=== PATIENT | male | born 1930 | race Caucasian/White ===

== ENCOUNTER 2016-11-12 09:01 | Emergency (ER) | payer MEDICARE, OTHER ==
[~2016-11-12] VITALS: Ht 177.8 cm; Wt 83.8 kg
[~2016-11-12 09:01] MED LIST: CARB1TAB53 PO; DUTA0.5C9 PO; TAMS0.4C20 PO
[2016-11-12 09:07] VITALS: Ht 177.8 cm; Wt 83.8 kg
--- OUTSIDE RECORDS SUMMARY | 2016-11-12 09:09 | XMS REPORT | Continuity of Care Document ---
Author Author Mary WALKER, Jose Sow Ambulatory Address [address] [place] [address] Phone Care Team Providers Care Stitch Wheeler Name Role Phone Bubba Gomez PP Unavailable Payers Payer name Insurance type Covered constitution party ID Authorization(s) Unknown Problems Condition Effective Dates (start - stop) Clinical Status BPH - *Controlled Hypertension, Unspecified - *Controlled Paralysis agitans - *Controlled Edema extremities - *Chronic Shoulder pain - *Acute Wrist pain, left - *Acute Scalp laceration - *Acute Brain concussion - *Acute Parkinson's Disease - *Chronic BPH - *Controlled Parkinson's Disease - Well Controlled Parkinson's Disease - Mild BPH - *Controlled Urinary frequency - *Controlled Parkinson's Disease - Mild PARALYSIS AGITANS - BPH NOS W/O UR OBS/LUTS - GENERAL OSTEOARTHROSIS - MUSCLE WEAKNESS-GENERAL - ABN INVOLUN MOVEMENT NEC - ABNORMALITY OF GAIT - Fx navicular, wrist-closed - *Acute Parkinson's Disease - *Chronic Closed fracture of navicular (scaphoid) bone of wr - *Acute Hand edema - *Resolved Parkinson disease - Well Controlled Family History Family Member Diagnosis Age At Onset Status Unknown Social History Social History Element Description Quantity Unknown Allergies, Adverse Reactions, Alerts Substance Reaction Severity Status Unknown Medications Medication Instructions Dosage Effective Dates (start - stop) Status Sinemet 25 mg-100 mg tablet Take 1 tablet by mouth 3 times a day. 2012 - Active Avodart 0.5 mg capsule Take 1 capsule by mouth every day. - Active Maxzide-25mg 37.5 mg-25 mg tablet take 1 tablet by oral route every day 0 - Active tamsulosin ER 0.4 mg capsule,extended release 24 hr Take 1 capsule by mouth at bedtime. - Active Immunizations Vaccine Date Status Comments Unknown Results Test Name Date and Time Measure Units Reference Range Abnormal Flag Comments Unknown Vital Signs Date / Time: Height Weight Pulse Rate Blood Pressure Temperature /14:01:00 70.00 in 192.00 lbs 86 /min 130/76 mm[Hg] Procedures Procedure Date Unknown Encounters Encounter Location Date Patient Visit [facility] Urology Patient Visit [facility] Patient Visit [facility] Patient Visit [facility] Patient Visit [facility] Patient Visit [facility] U[facility] Patient Visit [facility] Patient Visit [facility] Patient Visit [facility] Patient Visit [facility] Patient Visit [facility] Patient Visit [facility] Advance Directives Directive Effective Date Unknown
--- OUTSIDE RECORDS SUMMARY | 2016-11-12 09:16 | XMS REPORT | Continuity of Care Document ---
Author Author Bubba Gomez MD Organization Ambulatory Address [address] [place] [address] Phone Care Team Providers Care Line Up Worker Name Role Phone Bubba Gomez PP Unavailable Payers Payer name Insurance type Covered alliance party ID Authorization(s) Unknown Problems Condition Effective Dates (start - stop) Clinical Status Fx navicular, wrist-closed - *Acute Edema extremities - *Chronic Shoulder pain - *Acute Wrist pain, left - *Acute Scalp laceration - *Acute Brain concussion - *Acute Parkinson's Disease - *Chronic BPH - *Controlled Parkinson's Disease - Well Controlled Parkinson's Disease - Mild BPH - *Controlled Hypertension, Unspecified - *Controlled Paralysis agitans - *Controlled BPH - *Controlled Urinary frequency - *Controlled Parkinson's Disease - Mild PARALYSIS AGITANS - BPH NOS W/O UR OBS/LUTS - GENERAL OSTEOARTHROSIS - MUSCLE WEAKNESS-GENERAL - ABN INVOLUN MOVEMENT NEC - ABNORMALITY OF GAIT - Parkinson's Disease - *Chronic Closed fracture of [...] Height Weight Pulse Rate Blood Pressure Temperature /13:09:00 70.00 in 199.00 lbs 134/72 mm[Hg] 97.2 F Procedures Procedure Date Unknown Encounters Encounter Location Date Patient Visit [facility] Patient Visit [facility] Patient Visit [facility] Urology Patient Visit [facility] Patient Visit [facility] Patient Visit [facility] Patient [facility] Patient Visit [facility] Patient Visit [facility] Patient Visit [facility] Patient Visit [facility] Patient Visit [facility] Patient Visit [facility] Patient Visit [facility] Advance Directives Directive Effective Date Unknown
--- OUTSIDE RECORDS SUMMARY | 2016-11-12 09:16 | XMS REPORT | Referral Summary ---
Author Organization Unknown Address Unknown Phone Unavailable Care Team Providers Care Can Capper Name Role Phone Vanessa Gomez Primary Care Physician [phone] Encounter VC Date(s): 10/12/14 - 10/12/14 [facility], [place], Family [address] [place], [place] [address] Discharge Diagnosis: Degenerative joint disease Discharge Diagnosis: Parkinsons disease Discharge Disposition: Home or Self Care Attending Physician: Bubba Gomez MD Admitting Physician: Bubba Gomez MD Vital Signs Most recent to 1 oldest [Reference Range]: Blood Pressure 120/68 mmHg [90-140/60-90 mmHg] (10/12/14 3:34 PM) Problem List Condition Effective Dates Status Health Status Informant Weakness(Confirmed) Active Edema(Confirmed) Active History of Active BPH(Confirmed) Degenerative joint Active disease(Confirmed) Parkinsons 07/15/10 Active disease(Confirmed) Prostatism(Confirmed Active ) Shuffling Active gait(Confirmed) Tremor(Confirmed) Active Allergies, Adverse Reactions, Alerts No Known Medication Allergies Medications Avodart 0.5 mg oral capsule See Instructions, TAKE ONE CAPSULE BY MOUTH EVERY DAY, # 90 caps, 1 Refill(s), eRx: [facility] #[id number], TAKE ONE CAPSULE BY MOUTH EVERY DAY Special Instructions: TAKE ONE CAPSULE BY MOUTH EVERY DAY Start Date: 06/16/14 Status: Ordered Maxzide-25 oral tablet See Instructions, TAKE ONE TABLET BY MOUTH EVERY DAY, # 30 tabs, 1 Refill(s), eRx: [facility] #[id number], TAKE ONE TABLET BY MOUTH EVERY DAY Special Instructions: TAKE ONE TABLET BY MOUTH EVERY DAY Start Date: 10/05/14 Status: Ordered Sinemet 25 mg-100 mg oral tablet See Instructions, TAKE ONE TABLET BY MOUTH THREE TIMES A DAY, # 100 tabs, 11 Refill(s), eRx: [facility] #[id number], TAKE ONE TABLET BY MOUTH THREE TIMES A DAY Special Instructions: TAKE ONE TABLET BY MOUTH THREE TIMES A DAY Start Date: 05/03/14 Status: Ordered Sinemet 25 mg-250 mg oral tablet 1 tabs, Oral, TID, # 270 tabs, 0 Refill(s), Pharmacy: [facility] #[id number] Start Date: 10/12/14 Status: Ordered tamsulosin 0.4 mg oral capsule See Instructions, TAKE ONE CAPSULE BY MOUTH EVERY NIGHT AT BEDTIME, # 30 caps, 5 Refill(s), eRx: [facility] #[id number], TAKE ONE CAPSULE BY MOUTH EVERY NIGHT AT BEDTIME Special Instructions: TAKE ONE CAPSULE BY MOUTH EVERY NIGHT AT BEDTIME Start Date: 06/29/14 Status: Ordered Tylenol Arthritis Caplet 650 mg, Oral, q8hr, 0 Refill(s) Start Date: 08/10/14 Status: Ordered Results No data available for this section Immunizations No data available for this section Procedures Procedure Date Related Diagnosis Body Site Prostate specific antigen 11/07/11 Prostate specific antigen 04/20/11 Adenoidectomy Hernia Knee replacement-left Knee replacement-rt Tonsillectomy Social History Social History Type Response Smoking Status Never smoker Assessment and Plan Extracted from: Title: Ambulatory Patient Education Author: Bubba Gomez MD Date: Family Medicine Parkinson Disease Parkinson disease is a disorder of the central nervous system, which includes the brain and spinal cord. A person with this disease slowly loses the ability to completely control body movements. Within the brain, there is a group of nerve cells (basal ganglia ) that help control movement. The basal ganglia are damaged and do not work properly in a person with Parkinson disease. In addition , the basal ganglia produce and use a brain chemical called dopamine. The dopamine chemical sends messages to other parts of the body to control and coordinate body movements. Dopamine levels are low in a person with Parkinson disease. If the dopamine levels are low, then the body does not receive the correct messages it needs to move normally. CAUSES The exact reason why the basal ganglia get damaged is not known. Some medical researchers have thought that infection, genes, environment, and certain medicines may contribute to the cause. SYMPTOMS An early symptom of Parkinson disease is often an uncontrolled shaking ( tremor ) of the hands. The tremor will often disappear when the affected hand is consciously used. As the disease progresses, walking, talking, getting out of a chair, and new movements become more difficult. Muscles get stiff and movements become slower. Balance and coordination become harder. Depression, trouble swallowing, urinary problems, constipation, and sleep problems can occur. Later in the disease, memory and thought processes may deteriorate. DIAGNOSIS There are no specific tests to diagnose Parkinson disease. You may be referred to a neurologist for evaluation. Your caregiver will ask about your medical history, symptoms, and perform a physical exam. Blood tests and imaging tests of your brain may be performed to rule out other diseases. The imaging tests may include an MRI or a CT scan. TREATMENT The goal of treatment is to relieve symptoms. Medicines may be prescribed once the symptoms become troublesome. Medicine will not stop the progression of the disease, but medicine can make movement and balance better and help control tremors. Speech and occupational therapy may also be prescribed. Sometimes, surgical treatment of the brain can be done in young people. HOME CARE INSTRUCTIONS Get regular exercise and rest periods during the day to help prevent exhaustion and depression. If getting dressed becomes difficult, replace buttons and zippers with Velcro and elastic on your clothing. Take all medicine as directed by your caregiver. Install grab bars or railings in your home to prevent falls. Go to speech or occupational therapy as directed. Keep all follow-up visits as directed by your caregiver. SEEK MEDICAL CARE IF: Your symptoms are not controlled with your medicine. You fall. You have trouble swallowing or choke on your food. MAKE SURE YOU: Understand these instructions. Will watch your condition. Will get help right away if you are not doing well or get worse. Document Released: 08/30/2001 Document Revised: 12/28/2013 Document Reviewed: [facility] Patient Information 2014 SYLOB. Osteoarthritis Osteoarthritis is the most common form of arthritis. It is redness, soreness, and swelling (inflammation ) affecting the cartilage. Cartilage acts as a cushion, covering the ends of bones where they meet to form a joint. CAUSES Over time, the cartilage begins to wear away. This causes bone to rub on bone. This produces pain and stiffness in the affected joints. Factors that contribute to this problem are: Excessive body weight. Age. Overuse of joints. SYMPTOMS People with osteoarthritis usually experience joint pain, swelling, or stiffness. Over time, the joint may lose its normal shape. Small deposits of bone (osteophytes ) may grow on the edges of the joint. Bits of bone or cartilage can break off and float inside the joint space. This may cause more pain and damage. Osteoarthritis can lead to depression, anxiety, feelings of helplessness, and limitations on daily activities. The most commonly affected joints are in the: Ends of the fingers. Thumbs. Neck. Lower back. Knees. Hips. DIAGNOSIS Diagnosis is mostly based on your symptoms and exam. Tests may be helpful, including: X-rays of the affected joint. A computerized magnetic scan (MRI). Blood tests to rule out other types of arthritis. Joint fluid tests. This involves using a needle to draw fluid from the joint and examining the fluid under a microscope. TREATMENT Goals of treatment are to control pain, improve joint function, maintain a normal body weight, and maintain a healthy lifestyle. Treatment approaches may include: A prescribed exercise program with rest and joint relief. Weight control with nutritional education. Pain relief techniques such as: Properly applied heat and cold. Electric pulses delivered to nerve endings under the skin (transcutaneous electrical nerve stimulation, TENS ). Massage. Certain supplements. Ask your caregiver before using any supplements, especially in combination with prescribed drugs. Medicines to control pain, such as: Acetaminophen. Nonsteroidal anti-inflammatory drugs (NSAIDs), such as naproxen. Narcotic or central-acting agents, such as tramadol. This drug carries a risk of addiction and is generally prescribed for short-term use. Corticosteroids. These can be given orally or as injection. This is a short-term treatment, not recommended for routine use. Surgery to reposition the bones and relieve pain (osteotomy ) or to remove loose pieces of bone and cartilage. Joint replacement may be needed in advanced states of osteoarthritis. HOME CARE INSTRUCTIONS Your caregiver can recommend specific types of exercise. These may include: Strengthening exercises. These are done to strengthen the muscles that support joints affected by arthritis. They can be performed with weights or with exercise bands to add resistance. Aerobic activities. These are exercises, such as brisk walking or low- impact aerobics, that get your heart pumping. They can help keep your lungs and circulatory system in shape. Qtzka-yk-xhebht activities. These keep your joints limber. Balance and agility exercises. These help you maintain daily living skills. Learning about your condition and being actively involved in your care will help improve the course of your osteoarthritis. SEEK MEDICAL CARE IF: You feel hot or your skin turns red. You develop a rash in addition to your joint pain. You have an oral temperature above 102 F (38.9 C). FOR MORE INFORMATION National Clear of Arthritis and Musculoskeletal and Skin Diseases: www.niams.nih.gov National Clear on Aging: www.blayne.nih.gov [employer]: www.rheumatology.org Document Released: 09/02/2006 Document Revised: 11/24/2012 Document Reviewed: [employer] Patient Information 2014 SYLOB. No follow up information was provided. Extracted from: Title: Office Visit Note Author: Bubba Gomez MD Date: 10/12/14 Assessment/Plan Degenerative joint disease Continue with the current medications. Ordered: Office Visit Level 4 Est 81410 Parkinsons disease Increase the Parkinsons medication to 25/250mg tid. Recheck in 2 weeks. Ordered: Office Visit Level 4 Est 04436 Orders: carbidopa-levodopa, 1 tabs, Oral, TID, # 270 tabs, 0 Refill(s), Pharmacy: [facility] #[id number]
--- OUTSIDE RECORDS SUMMARY | 2016-11-12 09:16 | XMS REPORT | Continuity of Care Document ---
Author Author [facility] Organization [facility] Address Unknown Phone Unavailable Allergies Active Description Code Type Severity Reaction Onset Reported/Identified Relationship to Patient Clinical Status Yes No Known Medication Allergies NKMA N/A N/A 06/08/2014 Medications Problems Procedures Results Encounters ACCT No. Visit Date/Time Discharge Status Pt. Type Provider Facility Loc./Unit Complaint [id number] 12/08/2013 11:22:00 12/08/2013 23 :59:59 CLS Outpatient [id number] 12/01/2013 14:00:00 12/01/2013 23 :59:59 CLS Outpatient [id number] 11/25/2013 13:08:00 11/25/2013 23 :59:59 CLS Outpatient [id number] 10/29/2013 10:21:00 10/29/2013 23 :59:59 CLS Outpatient [id number] 10/22/2013 10:14:00 10/22/2013 23 :59:59 CLS Outpatient
--- OUTSIDE RECORDS SUMMARY | 2016-11-12 09:17 | XMS REPORT | Referral Summary ---
Author Author [facility] [place], Family Medicine Organization [facility] Address Unknown Phone Unavailable Care Team Providers Care Clerical Stock Inspector Name Role Phone Vanessa Gomez Primary Care Physician [phone] Encounter VC Date(s): 02/08/16 - 02/08/16 [facility] [place], [address] [place] [id number] Discharge Diagnosis: Cough Discharge Disposition: 01-Home or Self Care Attending Physician: Danielle Hernandez APRN Admitting Physician: Danielle Hernandez APRN Vital Signs Most recent to 1 oldest [Reference Range]: Temperature Oral 36.4 degC [35.8-37.3 degC] (02/08/16 8:54 AM) Peripheral Pulse 68 bpm Rate [60-100 bpm] (02/08/16 8:54 AM) Blood Pressure 108/62 mmHg [90-140/60-90 mmHg] (02/08/16 8:54 AM) Mean Arterial 77 mmHg Pressure, Cuff (02/08/16 8:54 AM) SpO2 98 % (02/08/16 8:54 AM) Problem List Condition Effective Dates Status Health Status Informant Weakness(Confirmed) Active History of Active BPH(Confirmed) Edema(Confirmed) Active Degenerative joint Active disease(Confirmed) Parkinsons 07/15/10 Active disease(Confirmed) Prostatism(Confirmed Active ) Shuffling Active gait(Confirmed) Tremor(Confirmed) Active Allergies, Adverse Reactions, Alerts No Known Medication Allergies Medications Avodart 0.5 mg oral capsule See Instructions, TAKE ONE CAPSULE BY MOUTH EVERY DAY, # 90 caps, 3 Refill(s), eRx: [facility] #[id number], TAKE ONE CAPSULE BY MOUTH EVERY DAY Start Date: 12/14/15 Status: Ordered Sinemet 25 mg-250 mg oral tablet See Instructions, TAKE ONE TABLET BY MOUTH THREE TIMES A DAY, # 270 tabs, eRx: [facility] #[id number], TAKE ONE TABLET BY MOUTH THREE TIMES A DAY Start Date: 12/06/14 Status: Ordered tamsulosin 0.4 mg oral capsule See Instructions, TAKE ONE CAPSULE BY MOUTH EVERY NIGHT AT BEDTIME, # 30 caps, 11 Refill(s), eRx: [facility] #[id number], TAKE ONE CAPSULE BY MOUTH EVERY NIGHT AT BEDTIME Start Date: 12/27/15 Status: Ordered triamterene-hydrochlorothiazide 37.5 mg-25 mg oral tablet See Instructions, TAKE ONE TABLET BY MOUTH EVERY DAY NEEDED FOR SWELLING, # 90 tabs, 3 Refill(s), Pharmacy: [facility] #[id number] Start Date: 07/25/15 Status: Ordered Tylenol Arthritis Caplet 650 mg, [...] Smoking Status Never smoker Assessment and Plan No data available for this section
--- OUTSIDE RECORDS SUMMARY | 2016-11-12 09:17 | XMS REPORT | Referral Summary ---
Author Author [facility] Organization [facility] Address Unknown Phone Unavailable Care Team Providers Care Eyewear Consultant Name Role Phone Vanessa Gomez Primary Care Physician [phone] Encounter VC Date(s): 12/06/15 - 12/06/15 [facility] [place], Urology [address] [place] [address] [place] [id number] Discharge Disposition: 01-Home or Self Care Attending Physician: Jose Hernandez JR, MD Admitting Physician: Jose Hernandez JR, MD Vital Signs Most recent to 1 oldest [Reference Range]: Peripheral Pulse 50 bpm Rate [60-100 bpm] *LOW* (12/06/15 1:40 PM) Blood Pressure 130/76 mmHg [90-140/60-90 mmHg] (12/06/15 1:40 PM) Problem List Condition Effective Dates Status Health Status Informant Weakness(Confirmed) Active History of Active BPH(Confirmed) Edema(Confirmed) Active Degenerative joint Active disease(Confirmed) Parkinsons 07/15/10 Active disease(Confirmed) Prostatism(Confirmed Active ) Shuffling Active gait(Confirmed) Tremor(Confirmed) Active Allergies, Adverse Reactions, Alerts No Known Medication Allergies Medications Avodart 0.5 mg oral capsule See Instructions, TAKE ONE CAPSULE BY MOUTH EVERY DAY, # 90 caps, 1 Refill(s), eRx: [facility] #[id number], TAKE ONE CAPSULE BY MOUTH EVERY DAY Start Date: 06/15/15 Status: Ordered Sinemet 25 mg-250 mg oral tablet See Instructions, TAKE ONE TABLET BY MOUTH THREE TIMES A DAY, # 270 tabs, eRx: [facility] #[id number], TAKE ONE TABLET BY MOUTH THREE TIMES A DAY Start Date: 12/06/14 Status: Ordered tamsulosin 0.4 mg oral capsule See Instructions, TAKE ONE CAPSULE BY MOUTH EVERY NIGHT AT BEDTIME, # 30 caps, eRx: [facility] #[id number], TAKE ONE CAPSULE BY MOUTH EVERY NIGHT AT BEDTIME Start Date: 12/01/15 Status: Ordered triamterene-hydrochlorothiazide 37.5 mg-25 mg oral tablet See Instructions, TAKE ONE TABLET BY MOUTH EVERY DAY NEEDED FOR SWELLING, # 90 tabs, 3 Refill(s), Pharmacy: [facility] #[id number] Start Date: 07/25/15 Status: Ordered Tylenol Arthritis Caplet 650 mg, Oral, q8hr, 0 Refill(s) Start Date: 08/10/14 Status: Ordered Results Chemistry Most recent to 1 oldest [Reference Range]: PSA (wihout Reflex 1.0 ng/mL 1 Free) [0.0-6.5 (12/06/15 1:33 PM) ng/mL] 1Result Comment: AUA PSA Best Practice Guidelines: Age-Adjusted PSA Values by Ethnic Group Age Range Asians - Caucasians Americans 40-49 0-2.0 0-2.0 0-2.5 50-59 0-3.0 0-4.0 0-3.5 60-69 0-4.0 0-4.5 0-4.5 70-79 0-5.0 0-5.5 0-6.5 Immunizations No data available for this section Procedures Procedure Date Related Diagnosis Body Site Prostate specific antigen 11/07/11 Prostate specific antigen 04/20/11 Adenoidectomy Hernia Knee replacement-left Knee replacement-rt Tonsillectomy Social History Social History Type Response Smoking Status Never smoker Assessment and Plan No data available for this section
--- OUTSIDE RECORDS SUMMARY | 2016-11-12 09:17 | XMS REPORT | Continuity of Care Document ---
Author Author Kaylin Fontanez Ambulatory Address Unknown Phone Unavailable Care Team Providers Care Psychologist Engineering Name Role Phone Gomez Bubba FARAZ Unavailable Payers Payer name Insurance type Covered democrat ID Authorization(s) Unknown Problems Condition Effective Dates (start - stop) Clinical Status Edema extremities - *Chronic Shoulder pain - *Acute Wrist pain, left - *Acute Scalp laceration - *Acute Brain concussion - *Acute Parkinson's Disease - *Chronic BPH - *Controlled Parkinson's Disease - Well Controlled Parkinson's Disease - Mild BPH - *Controlled Hypertension, Unspecified - *Controlled Paralysis agitans - *Controlled BPH - *Controlled Urinary frequency - *Controlled PARALYSIS AGITANS - BPH NOS W/O UR [...] Dosage Effective Dates (start - stop) Status Maxzide-25mg 37.5 mg-25 mg tablet take 1 tablet by oral route every day 0 - Active Flint 5 mg-325 mg tablet take 1 tablet by oral route every 6 hours as needed for pain 0 - No Longer Active Sinemet 25 mg-100 mg tablet Take 1 tablet by mouth 3 times a day. 2012 - Active Avodart 0.5 mg capsule Take 1 capsule by mouth every day. - Active tamsulosin ER 0.4 mg capsule,extended release 24 hr Take 1 capsule by mouth at bedtime. - Active Immunizations Vaccine Date Status Comments Unknown Results Test Name Date and Time Measure Units Reference Range Abnormal Flag Comments Panel Description: CBC WBC 11:44:00 6.0 K/uL 4.8-10.8 RBC 11:44:00 5.02 M/uL 4.60-6.20 HGB 11:44:00 14.8 g/dl 14.0-18.0 HCT 11:44:00 44.3 % 42.0-52.0 MCV 11:44:00 88.2 fL 82.0-99.0 MCH 11:44:00 29.5 pg 27.0-32.0 MCHC 11:44:00 33.4 g/dL 32.0-36.0 RDW 11:44:00 13.1 % 11.5-14.5 MPV 11:44:00 10.0 fL 8.8-14.8 Platelet Count 11:44:00 283 K/uL 150-400 Immature Granulocytes 11:44:00 0.2 % 0.0-1.0 Absolute Neutrophils 11:44:00 3.95 THOUS 1.90-7.00 Absolute Lymphocytes 11:44:00 1.42 THOUS 0.80-3.30 Absolute Monocytes 11:44:00 0.51 THOUS 0.30-1.00 Absolute Eosinophils 11:44:00 0.09 THOUS 0.00-0.50 Absolute Basophils 11:44:00 0.06 THOUS 0.00-0.20 Neutrophils 11:44:00 65 % 51-75 Lymphocytes 11:44:00 24 % 20-46 Monocytes 11:44:00 8 % 4-11 Eosinophils 11:44:00 2 % 0-4 Basophils 11:44:00 1 % 0-2 Testing performed [address] [facility] [address] [facility] [address] [employer] Johann Gilmore MD Panel Description: Chemistry Profile Glucose 11:44:00 106 mg/dL 70-99 H BUN 11:44:00 17 mg/dL 8-26 Creatinine 11:44:00 1.07 mg/dL 0.72-1.25 Calcium 11:44:00 9.6 mg/dL 8.9-10.5 Sodium 11:44:00 140 mEq/L 135-144 Potassium 11:44:00 4.4 mEq/L 3.5-5.2 Chloride 11:44:00 106 mEq/L 99-111 CO2 11:44:00 25 mEq/L 23-31 Albumin 11:44:00 4.3 g/dL 3.4-4.8 Bilirubin Total 11:44:00 0.8 mg/dL 0.2-1.2 Alkaline Phosphatase 11:44:00 93 U/L 40-150 Protein 11:44:00 6.9 g/dL 6.2-8.1 ALT (SGPT) 11:44:00 3 U/L 0-55 AST (SGOT) 11:44:00 13 U/L 5-34 Anion Gap 11:44:00 9 3-20 Globulin 11:44:00 2.6 g/dL 1.8-4.0 Testing performed at [facility] [address] [place] [address] [employer] Johann Gilmore MD Panel Description: Lipid Profile-[facility] Cholesterol 11:44:00 175 mg/dL 0-199 Triglycerides 11:44:00 82 mg/dL 0-149 HDL Cholesterol 11:44:00 68 mg/dL 40-84 LDL Cholesterol 11:44:00 91 mg/dL 0-130 VLDL Cholesterol 11:44:00 16 mg/dL 0-28 Cardiac Risk 11:44:00 2.6 0.0-5.7 Testing performed at [facility] [address] [place] [address] [employer] Johann Gilmore MD Panel Description: Non-HDL Cholesterol-[facility] Non-HDL Cholesterol 11:44:00 107 mg/dL 0-159 Testing performed at [facility] [address] [place] [address] [employer] Johann Gilmore MD Panel Description: T4-[facility] Thyroxine (T4) 11:44:00 8.0 ug/dL 4.8-11.7 Testing performed [address] [facility] [address] [place] [address] [employer] Johann Gilmore MD Panel Description: TSH-[facility] TSH 11:44:00 1.08 uIU/mL 0.35-4.94 Testing performed at [facility] [address] [place] [address] [employer] Johann Gilmore MD Panel Description: EGFR-[facility] eGFR 11:44:00 >60 mL/min >60 Multiply eGFR results by 1.21 for race.Testing performed at [facility] [address] [place] [address] [employer] Johann Gilmore MD Panel Description: Brain Natriuretic Peptide B-Type Natriuretic Peptide 11:44:00 36 pg/mL 0-99 Testing performed at [facility] [address] [place] [address] [employer] Johann Gilmore MD Vital Signs Date / Time: Height Weight Pulse Rate Blood Pressure Temperature /10:15:00 70.00 in 205.00 lbs 160/80 mm[Hg] 98.4 F Procedures Procedure Date Unknown Encounters Encounter Location Date Patient Visit [facility] New FM Patient Visit [facility] Neuro Patient Visit [facility] New Urology Patient Visit [facility] New Urology Patient Visit [facility] New Urology Patient Visit [facility] New Urology Patient Visit [facility] Neuro Patient Visit [facility] New Urology Patient Visit [facility] New Urology Patient Visit [facility] Patient Visit [facility] New Patient Visit [facility] New Patient Visit [facility] Neuro Advance Directives Directive Effective Date Unknown
--- OUTSIDE RECORDS SUMMARY | 2016-11-12 09:17 | XMS REPORT | Referral Summary ---
Author Author Via [facility] [place], Family Medicine Organization Via EarleneCARLO Santillan [facility] Address Unknown Phone Unavailable Care Team Providers Care Clay Dry Press Mixer Operator Name Role Phone Vanessa Gomez Primary Care Physician [phone] Encounter VC Date(s): 07/25/15 - 07/25/15 [facility] Kimball [place], [address] [place] [id number] Discharge Disposition: 01-Home or Self Care Attending Physician: Bubba Gomez MD Admitting Physician: Bubba Gomez MD Vital Signs Most recent to 1 oldest [Reference Range]: Blood Pressure 112/64 mmHg [90-140/60-90 mmHg] (07/25/15 1:15 PM) Problem List Condition Effective Dates Status Health Status Informant Weakness(Confirmed) Active History of Active BPH(Confirmed) Edema(Confirmed) Active Degenerative joint Active disease(Confirmed) Parkinsons 07/15/10 Active disease(Confirmed) Prostatism(Confirmed Active ) Shuffling Active gait(Confirmed) Tremor(Confirmed) Active Allergies, Adverse Reactions, Alerts No Known Medication Allergies Medications Avodart 0.5 mg oral capsule See Instructions, TAKE ONE CAPSULE BY MOUTH EVERY DAY, # 90 caps, 1 Refill(s), eRx: [facility] #[id number], TAKE ONE CAPSULE BY MOUTH EVERY DAY Start Date: 06/15/15 Status: Ordered Sinemet 25 mg-250 mg oral tablet See Instructions, TAKE ONE TABLET BY MOUTH THREE TIMES A DAY, # 270 tabs, eRx: [facility] #[id number], TAKE ONE TABLET BY MOUTH THREE TIMES A DAY Start Date: 12/06/14 Status: Ordered tamsulosin 0.4 mg oral capsule See Instructions, TAKE ONE CAPSULE BY MOUTH EVERY NIGHT AT BEDTIME, # 30 caps, 10 Refill(s), eRx: [facility] #[id number], TAKE ONE CAPSULE BY MOUTH EVERY NIGHT AT BEDTIME Start Date: 12/29/14 Status: Ordered triamterene-hydrochlorothiazide 37.5 mg-25 mg oral tablet See Instructions, TAKE ONE TABLET BY MOUTH EVERY DAY NEEDED FOR SWELLING, # 90 tabs, 3 Refill(s), Pharmacy: [facility] #[id number] Start Date: 07/25/15 Status: Ordered Tylenol Arthritis [...] Patient Education Author: Bubba Gomez MD Date: 07/25/15 Allergy Edema Edema is an abnormal buildup of fluids in your bodytissues. Edema is somewhat dependent on gravity to pull the fluid to the lowest place in your body. That makes the condition more common in the legs and thighs (lower extremities). Painless swelling of the feet and ankles is common and becomes more likely as you get older. It is also common in looser tissues, like around your eyes. When the affected area is squeezed, the fluid may move out of that spot and leave a dent for a few moments. This dent is called pitting. CAUSES There are many possible causes of edema. Eating too much salt and being on your feet or sitting for a long time can cause edema in your legs and ankles. Hot weather may make edema worse. Common medical causes of edema include: Heart failure. Liver disease. Kidney disease. Weak blood vessels in your legs. Cancer. An injury. . Some medications. Obesity. SYMPTOMS Edema is usually painless.Your skin may look swollen or shiny. DIAGNOSIS Your health care provider may be able to diagnose edema by asking about your medical history and doing a physical exam. You may need to have tests such as X- rays, an electrocardiogram, or blood tests to check for medical conditions that may cause edema. TREATMENT Edema treatment depends on the cause. If you have heart, liver, or kidney disease, you need the treatment appropriate for these conditions. General treatment may include: Elevation of the affected body part above the level of your heart. Compression of the affected body part. Pressure from elastic bandages or support stockings squeezes the tissues and forces fluid back into the blood vessels. This keeps fluid from entering the tissues. Restriction of fluid and salt intake. Use of a water pill (diuretic). These medications are appropriate only for some types of edema. They pull fluid out of your body and make you urinate more often. This gets rid of fluid and reduces swelling, but diuretics can have side effects. Only use diuretics as directed by your health care provider. HOME CARE INSTRUCTIONS Keep the affected body part above the level of your heart when you are lying down. Do not sit still or stand for prolonged periods. Do not put anything directly under your knees when lying down. Do not wear constricting clothing or garters on your upper legs. Exercise your legs to work the fluid back into your blood vessels. This may help the swelling go down. Wear elastic bandages or support stockings to reduce ankle swelling as directed by your health care provider. Eat a low-salt diet to reduce fluid if your health care provider recommends it. Only take medicines as directed by your health care provider. SEEK MEDICAL CARE IF: Your edema is not responding to treatment. You have heart, liver, or kidney disease and notice symptoms of edema. You have edema in your legs that does not improve after elevating them. You have sudden and unexplained weight gain. SEEK IMMEDIATE MEDICAL CARE IF: You develop shortness of breath or chest pain. You cannot breathe when you lie down. You develop pain, redness, or warmth in the swollen areas. You have heart, liver, or kidney disease and suddenly get edema. You have a fever and your symptoms suddenly get worse. MAKE SURE YOU: Understand these instructions. Will watch your condition. Will get help right away if you are not doing well or get worse. Document Released: 09/02/2006 Document Revised: 01/17/2015 Document Reviewed: ExitCare Patient Information 2015 [employer]. This information is not intended to replace advice given to you by your health care provider. Make sure you discuss any questions you have with your health care provider. Family Medicine Parkinson Disease Parkinson disease is a disorder of the brain and spinal cord (central nervous system). The person will slowly lose the ability to control his or her body movements. This happens due to: Damaged nerve cells. Low levels of a certain brain chemical. HOME CARE Exercise often. Make time to rest during the day. Take all medicine as told by your doctor. Replace buttons and zippers with elastic and Velcro if getting dressed is difficult. Put grab bars or rails in your home. This helps you to not fall. Go to speech therapy or therapy to help you with daily activities ( occupational therapy). Do this as told by your doctor. Keep all doctor visits as told. GET HELP IF: Your medicine does not help your symptoms. You fall. You have trouble swallowing or choke on your food. MAKE SURE YOU: Understand these instructions. Will watch your condition. Will get help right away if you are not doing well or get worse. Document Released: 11/24/2012 Document Revised: 12/28/2013 Document Reviewed: ExitCare Patient Information 2015 [employer]. This information is not intended to replace advice given to you by your health care provider. Make sure you discuss any questions you have with your health care provider. No follow up information was provided. Extracted from: Title: Office Visit Note Author: Bubba Gomez MD Date: 07/25/15 Assessment/Plan Edema Will have the patient try taking the HCTZ as needed for edema. Ordered: Office Visit Level 3 Est 66499 Parkinsons disease Continue with the current medications. Ordered: Office Visit Level 3 Est 12256 Prostatism Ordered: Office Visit Level 3 Est 57589 Orders: triamterene-hydrochlorothiazide, See Instructions, TAKE ONE TABLET BY MOUTH EVERY DAY NEEDED FOR SWELLING, # 90 tabs, 3 Refill(s), Pharmacy: [facility] #[id number]
--- OUTSIDE RECORDS SUMMARY | 2016-11-12 09:17 | XMS REPORT | Continuity of Care Document ---
Author Author Bubba Gomez MD Organization Ambulatory Address [address] [place] [address] Phone Care Team Providers Care Government Teacher Name Role Phone Bubba Gomez PP Unavailable Payers Payer name Insurance type Covered constitution party ID Authorization(s) Unknown Problems Condition Effective Dates (start - stop) Clinical Status Parkinson's Disease - *Chronic Closed fracture of navicular (scaphoid) bone of wr - *Acute Hand edema - *Resolved Edema extremities - *Chronic Shoulder pain - [...] GAIT - Fx navicular, wrist-closed - *Acute Parkinson disease - Well Controlled Family History Family Member Diagnosis Age At Onset Status Unknown Social History Social History Element Description Quantity Unknown Allergies, Adverse Reactions, Alerts Substance Reaction Severity Status Unknown Medications Medication Instructions Dosage Effective Dates (start - stop) Status Mobic 7.5 mg tablet take 1 tablet (7.5MG) by oral route 2 times every day 7.5 MG - No Longer Active Sinemet 25 mg-100 [...] Height Weight Pulse Rate Blood Pressure Temperature /10:23:00 70.00 in 196.00 lbs 140/80 mm[Hg] 97.2 F Procedures Procedure Date Unknown Encounters Encounter Location Date Patient Visit [facility] Patient Visit [facility] Neuro Patient Visit [facility] Urology Patient Visit [facility] Patient Visit [facility] Urology Patient Visit [facility]rology Patient Visit [facility] Urology Patient Visit [facility] Neuro Patient Visit [facility] New Urology Patient Visit [facility] Urology Patient Visit [facility] Neuro Patient Visit [facility] Patient Visit [facility] Patient Visit [facility] Advance Directives Directive Effective Date Unknown
--- OUTSIDE RECORDS SUMMARY | 2016-11-12 09:17 | XMS REPORT | Referral Summary ---
Author Organization Unknown Address Unknown Phone Unavailable Care Team Providers Care Granite Sandblaster Apprentice Name Role Phone Vanessa Gomez Primary Care Physician [phone] Encounter VC Date(s): 12/07/14 - 12/07/14 [facility]ball, [facility], Urology [address] [place] [address] [place] [address] Discharge Diagnosis: BPH with obstruction/lower urinary tract symptoms Discharge Disposition: Home or Self Care Attending Physician: Jose Hernandez JR, MD Admitting Physician: Jose Hernandez JR, MD Referring Physician: Bubba Gomez MD Vital Signs Most recent to 1 oldest [Reference Range]: Peripheral Pulse 76 bpm Rate [60-100 bpm] (12/07/14 2:23 PM) Blood Pressure 126/68 mmHg [90-140/60-90 mmHg] (12/07/14 2:23 PM) Most recent to 1 oldest [Reference Range]: SpO2 97 % (12/07/14 2:23 PM) Problem List Condition Effective Dates Status Health Status Informant Weakness(Confirmed) Active Edema(Confirmed) Active History of Active BPH(Confirmed) Degenerative joint Active disease(Confirmed) Parkinsons 07/15/10 Active disease(Confirmed) Prostatism(Confirmed Active ) Shuffling Active gait(Confirmed) Tremor(Confirmed) Active Allergies, Adverse Reactions, Alerts No Known Medication Allergies Medications Avodart 0.5 mg oral capsule See Instructions, TAKE ONE CAPSULE BY MOUTH EVERY DAY, # 90 caps, 1 Refill(s), eRx: [email or web address] #[id number], TAKE ONE CAPSULE BY MOUTH EVERY DAY Special Instructions: TAKE ONE CAPSULE BY MOUTH EVERY DAY Start Date: 06/16/14 Status: Ordered Maxzide-25 oral tablet See Instructions, TAKE ONE TABLET BY MOUTH EVERY DAY, # 30 tabs, eRx: [email or web address] #[id number], TAKE ONE TABLET BY MOUTH EVERY DAY Special Instructions: TAKE ONE TABLET BY MOUTH EVERY DAY Start Date: 12/07/14 Status: Ordered Sinemet 25 mg-250 mg oral tablet See Instructions, TAKE ONE TABLET BY MOUTH THREE TIMES A DAY, # 270 tabs, eRx: [facility] #[id number], TAKE ONE TABLET BY MOUTH THREE TIMES A DAY Special Instructions: TAKE ONE TABLET BY MOUTH THREE TIMES A DAY Start Date: 12/06/14 Status: Ordered tamsulosin 0.4 mg oral capsule See Instructions, TAKE ONE CAPSULE BY MOUTH EVERY NIGHT AT BEDTIME, # 30 caps, 5 Refill(s), eRx: [facility] #[id number], TAKE ONE CAPSULE BY MOUTH EVERY NIGHT [...] Extracted from: Title: Ambulatory Patient Education Author: Jose Hernandez JR, MD Date : 12/07/14 Follow Up With: Where: When: Bubba Gomez [address] [place] [address] Drive; [place] [address] Business (1) Within 3 to 5 days Comments: Follow Up With: Where: When: Jose Hernandez [address] [place] [address] Drive; [place] [address] Business (1) In 1 year 12/08/2015 Comments:
--- OUTSIDE RECORDS SUMMARY | 2016-11-12 09:17 | XMS REPORT | Continuity of Care Document ---
Author Author Olive WALKER, Nelli Gonzalez Organization Ambulatory Address [address] [place] [address] Phone Care Team Providers Care Recordak Operator Name Role Phone Bubba Gomez PP Unavailable Payers Payer name Insurance type Covered democrat ID Authorization(s) Unknown Problems Condition Effective Dates (start - stop) Clinical Status Parkinson's Disease - Mild Edema extremities - *Chronic Shoulder pain - [...] Height Weight Pulse Rate Blood Pressure Temperature /11:23:00 70.00 in 192.00 lbs 84 /min 132/78 mm[Hg] Procedures Procedure Date Unknown Encounters Encounter Location Date Patient Visit [facility] Neuro Patient Visit [facility] Patient Visit [facility] Urology Patient Visit [facility] Patient Visit [facility] Urology Patient Visit [facility] Urology Patient Visit [facility] Urology Patient Visit [facility] Neuro Patient Visit [facility] Urology Patient Visit [facility] New Urology Patient Visit [facility] Patient Visit [facility] Patient Visit [facility] Patient Visit [facility] Neuro Advance Directives Directive Effective Date Unknown
--- NOTE | 2016-11-12 09:29 | ERPDOC ---
Departure Disposition Decision Date: Nov 12, 2016 Disposition Decision Time: 11:01 Disposition: 01 DISCHARGED HOME, SELF-CARE Impression Impression Impression: Primary Impression: Syncopal episodes Syncope type: unspecified Qualified Codes: R55 - Syncope and collapse Severity: Moderate Condition: Stable Seen By: Physician only Referrals: AUSTYN CHAMPION MD (Family) Patient Instructions: Syncope (ED) Problems/Meds/Labs Reviewed?: Yes Medications reviewed and manag: Yes Additional Instructions: Follow-up later this week for reevaluation Follow up care ordered?: Yes Mental Status: Alert, Oriented HPI - Syncope General Chief Complaint: Syncope Stated Complaint: FAINTED AT HOME. Time Seen by Provider: 09:28 Source: family Exam Limitations: no limitations HPI - Syncope Initial Comments Patient is an 86-year-old male presents emergency room for evaluation of passing out the breakfast table. Patient taking his home medications normally this morning after eating breakfast, states he suddenly slumped over and passed out for several minutes. Patient woke up alert and oriented without complaint no chest pain or dizziness that he can remember. Patient did say he had an episode like this several months ago where he took his "medications too close together". Patient arrives asymptomatic Occurred At: home Onset: Rapid Duration: other (2-3 minutes) Allergies: Coded Allergies: No Known Drug Allergies (Unverified Adverse Reaction, Unknown, 11/12/16) Past History Past Medical History ENMT: other Male: BPH Neurological: other Surgical History General: hernia, tonsils Joint: knee Social History Smoking Status: Never smoker Substance Use Type: does not use Alcohol Intake: none Review of Systems Constitutional Constitutional: weakness, DENIES: appetite decrease, chills, dizziness, fever Eyes Vision: DENIES: double vision, loss of visual chow ENMT Sinuses: DENIES: congestion, rhinorrhea Cardiovascular Cardiac: DENIES: chest pain, dyspnea on exertion Pulmonary Respiratory: DENIES: cough, dyspnea, sputum, tachypnea GI Upper Abdomen: DENIES: nausea, pain, vomiting Lower Abdomen: DENIES: constipation, diarrhea, pain Musculoskeletal General: DENIES: cramps, pain, weakness Integumentary Skin: DENIES: color change, itching, rash Endocrine Endocrine: DENIES: heat/cold intolerance Hematologic/Lymphatic Hematologic/Lymphatic: DENIES: anemia Physical Exam General General Nourishment: well nourished, well developed General Body Habitus: well groomed Vitals and Pain Weight: Kilograms: Height (feet): Height (inches): Triage Pain Scale: RN VS reviewed by Provider: Yes Eyes (brief) Eyes Brief: found: EOMI, PERRL ENMT (brief) ENMT Brief: FOUND: mucosa moist, normal dentition, NOT FOUND: nasal erythema, pharnyx erythema, tonsillar deviation Neck (brief) Neck: NOT FOUND: adenopathy, spasm, tenderness Respiratory (brief) Respiratory: FOUND: clear all chow, equal bilaterally, NOT FOUND: rales, wheezes Cardiovascular (brief) Cardiac: FOUND: regular rate, regular rhythm Capillary Refill: <2 sec Abdomen (brief) Abdominal Brief: FOUND: bowel normo active x4, soft, NOT FOUND: distended, tender Lymphatic (brief) Lymphatic Brief: NOT FOUND: adenopathy Musculoskeletal (brief) Musculoskeletal Brief: NOT FOUND: spasm, tenderness Integumentary (brief) Integumentary Brief: FOUND: dry, pink, warm, NOT FOUND: rash Neurologic Mental Status: FOUND: alert, oriented GCS Adult : GCS Eye Opening: (4)Spontaneous GCS Verbal: (5)Oriented GCS Motor: (6)Obeys Commands Cranial Nerves: FOUND: other (cranial nerves II through XII intact) Motor : Motor Side: bilateral Motor Location: biceps, triceps, wrist, finger extensors, finger flexors, quadriceps, hamstring, foot extension, foot flexion, coremaker pipe strength Motor Degree: 5 Sensation: FOUND: soft touch intact x4 ext Cerebellar: FOUND: [id number] DTR's : DTR Side: bilateral DTR Location: Biceps, Patellar DTR Grade: 2+ Differential Diagnoses Differential Diagnoses Considering: Acute PR/Ischemia, Aortic Dissection, Bradycardia, Brugada Syndrome, Cardiac Dysrhythmia, Cardiac Tamponade, Hyperventilation, Hypertensive Emergency, Hypoglycemia, Long QT Syndrome, Medication Effect, Orthostatic Hypotension, Overdose, TIA, UTI, Vasovagal Reaction Progress Results/Orders Orders Procedure Category Date Status Time EKG EKG 11/12/16 Taken 09:06 Iv Lock (Ed Only) EDM 11/12/16 Transmitted 09:37 Orthostatic Bp/Pulse EDM 11/12/16 Transmitted 09:37 Cbc W/Auto LAB 11/12/16 Complete Diff-Reflex Manual 09:37 Bmp - Basic Metabolic LAB 11/12/16 Complete Panel 09:37 Troponin I W LAB 11/12/16 Complete Hemolysis Index 09:37 Ua, Dip Wreflex LAB 11/12/16 Complete Microsc & Metal Tube Cutter 09:37 Chest 1 View RAD 11/12/16 Resulted 09:37 Normal Saline (Normal PHA 11/12/16 Complete Saline Iv) 09:37 Lab Results Laboratory Tests Test 11/12/16 09:11 11/12/16 09:18 11/12/16 10:09 Glucometer 125mg/dL White Blood Count 6.0T/MM3 Red Blood Count 4.98M/MM3 Hemoglobin 14.9GM/DL Hematocrit 45.3% Mean Corpuscular Volume 91.0UM3 Mean Corpuscular Hemoglobin 29.9UUG Mean Corpuscular Hemoglobin Concent 32.9GM/DL RDW Standard Deviation 41.9FL Platelet Count 244T/MM3 Mean Platelet Volume 9.5UM3 Immature Granulocyte % (Auto) 0.3% Neutrophils (%) (Auto) 64.3% Lymphocytes (%) (Auto) 27.0% Monocytes (%) (Auto) 6.0% Eosinophils (%) (Auto) 1.7% Basophils (%) (Auto) 0.7% Absolute Immature Granulocyte (auto 0.02T/MM3 Absolute Neutrophils (auto) 3.9T/MM3 Absolute Lymphocytes (auto) 1.6T/MM3 Absolute Monocytes (auto) 0.4T/MM3 Absolute Eosinophils (auto) 0.1T/MM3 Absolute Basophils (auto) 0.0T/MM3 Turbidity < 20 Sodium Level 140MEQ/L Potassium Level 3.7MEQ/L Chloride Level 101MEQ/L Carbon Dioxide Level 32MEQ/L Anion Gap 7MEQ/L Blood Urea Nitrogen 25.0MG/DL Creatinine 1.4MG/DL Glomerular Filtration Rate Calc 48 BUN/Creatinine Ratio 18RATIO Glucose Level 147MG/DL Calculated Osmolality 276MOSM/KG Calcium Level 9.0MG/DL Icterus Index < 2 Troponin I < 0.012ng/ml Chemistry Specimen Hemolysis < 15 Urine Collection Type Voided-not cc-midstr Urine Color Yellow Urine Turbidity Clear Urine pH 6.0 Urine Specific [place] 1.015 Urine Protein Negative Urine Glucose (UA) Negative Urine Ketones Negative Urine Blood Negative Urine Nitrite Negative Urine Bilirubin Negative Urine Urobilinogen 0.2EU/DL Urine Leukocyte Esterase Negative Urinalysis Comment Microscopic not ind. Medications Current ED Medications Sodium Chloride (Normal Saline IV) 1,000 ml @ 999 mls/hr Q1H1M ONCE IV Last administered on 11/12/16t 10:04; Start 11/12/16 at 09:37; Stop 11/12/16 at 10:37 ; Status DC EKG EKG : Rate: <60 Rhythm: sinus [place]: normal QRS: normal Intervals: [address]/T: non-specific changes Interpreted by: signing physician Xray Xray : Xray: CXR Portable Interpretation: Normal, Reviewed Written Report WENDY WATERS MD Nov 12, 2016 09:28
[2016-11-12] MEDS ORDERED: NORMAL SALINE 1,000 ML IV ONE (09:37)
[2016-11-12 09:44] LABS: BASOPHILS % (AUTO) 0.7 % (0-2); EOSINOPHILS # (AUTO) 0.1 T/MM3 (0-0.5); EOSINOPHILS % (AUTO) 1.7 % (0-4); HCT - HEMATOCRIT 45.3 % (41-53); HGB - HEMOGLOBIN 14.9 GM/DL (13.5-17.5); IMMATURE GRANULOCYTE # (AUTO) 0.02 T/MM3 (0.00-0.03); IMMATURE GRANULOCYTE % (AUTO) 0.3 % (0.0-0.5); LYMPHOCYTES # (AUTO) 1.6 T/MM3 (1-4.8); MEAN CORPUSCULAR HGB 29.9 UUG (26-34); MEAN CORPUSCULAR HGB CONC(MCHC 32.9 GM/DL (31-37); MEAN PLATELET VOLUME 9.5 UM3 (9.4-12.4); MONOCYTES # (AUTO) 0.4 T/MM3 (0-0.8); NEUTROPHILS #(AUTO)-ABSOLUTE 3.9 T/MM3 (1.8-7.7); NEUTROPHILS % (AUTO) 64.3 % (33-66); RED BLOOD COUNT 4.98 M/MM3 (4.50-5.90)
[2016-11-12 09:49] LABS: ANION GAP 7 MEQ/L (5-15); BUN/CREATININE RATIO 18 RATIO (6-26); CHLORIDE 101 MEQ/L (98-107); CO2 - CARBON DIOXIDE 32 MEQ/L (22-30); CREATININE 1.4 MG/DL (0.8-1.5); GLOMERULAR FILTRATION RATE 48; GLUCOSE 147 MG/DL (75-110); POTASSIUM 3.7 MEQ/L (3.6-5); SODIUM 140 MEQ/L (134-144)
--- OUTSIDE RECORDS SUMMARY | 2016-11-12 09:57 | XMS REPORT | Continuity of Care Document ---
Author Author [facility] Organization [facility] Address Unknown Phone Unavailable Allergies Active Description Code Type Severity Reaction Onset Reported/Identified Relationship to Patient Clinical Status Yes No Known Medication Allergies NKMA N/A N/A 06/08/2014 Medications Problems Procedures Results Encounters ACCT No. Visit Date/Time Discharge Status Pt. Type Provider Facility Loc./Unit Complaint [id number] 12/08/2013 11:22:00 12/08/2013 23 :59:59 CLS Outpatient [id number] 12/01/2013 14:00:00 12/01/2013 23 :59:59 CLS Outpatient [id number] 11/25/2013 13:08:00 11/25/2013 23 :59:59 CLS Outpatient [id number] 10/29/2013 10:21:00 10/29/2013 23 :59:59 CLS Outpatient [id number] 10/22/2013 10:14:00 10/22/2013 23 :59:59 CLS Outpatient
[2016-11-12 10:18] LABS: BLOOD, URINE NEGATIVE (NEGATIVE); COLOR,URINE YELLOW (YELLOW); LEUKOCYTE ESTERASE ,URINE NEGATIVE (NEGATIVE); NITRITE,URINE NEGATIVE (NEGATIVE); UROBILINOGEN,URINE 0.2 EU/DL (NORMAL)
[2016-11-12] MEDS ORDERED: CARB1TAB23 PO (10:33)
[2016-11-12] MEDS ORDERED: CYAN10009 PO (10:33)
[2016-11-12] MEDS ORDERED: TAMS0.4C47 PO (10:33)
[2016-11-12] MEDS ORDERED: TRIA1TAB3 PO (10:33)
--- NOTE | 2016-11-12 10:38 | DI ---
Indication: ITS.REASON: syncopal episode PROCEDURE: CHEST 1 VIEW: Encounter: Initial Comparison: None Findings: The lungs are clear. Heart size normal. No focal opacity to suggest atelectasis or pneumonia. No mediastinal or hilar adenopathy. No pleural effusion. No subdiaphragmatic free air. The trachea is midline. No definite acute appearing displaced rib fracture or pneumothorax. Impression: No acute process. .
[2016-11-12 11:25] VITALS: BP 111/59; PULSE 55; RESP 16; TEMP 98.6; O2SAT 96
--- NOTE | 2016-11-12 11:25 | NUR ---
DEPART VERBAL AND WRITTEN DISCHARGE INSTRUCTIONS GIVEN AND UNDERSTOOD. CONDITION STABLE. RELEASED AMBULATORY WITH .
== END 2016-11-12 11:25 | disposition home or self-care (01) ==
LOC: ED 09:01
DX: R55 Syncope and collapse (principal); R53.1 Weakness
CPT/HCPCS: 71010; 80048; 81003; 82948; 84484; 85025; 93005; 96360; 99284; J7030

== ENCOUNTER → 2016-11-28 | Outpatient (CLI) | payer MEDICARE, OTHER ==
[~2016-11-28] MED LIST changes: +CARB1TAB23 PO; -CARB1TAB53 PO; +CYAN10009 PO; +IOHEXOL 300 MG/ML 50ml INJECTION ONE; +NORMAL SALINE 100 ML ONE; +SALINE FLUSH 10ml SYRINGE ONE; -TAMS0.4C20 PO; +TAMS0.4C47 PO; +TRIA1TAB3 PO
--- NOTE | 2016-11-28 11:16 | DI ---
Indication: ITS.REASON: R55 Syncope and collapse Procedure: CT HEAD W/WO CONTRAST: Encounter: Initial Comparison: None Technique: Axial CT images through the head were performed before and after administration of 50 mL Omnipaque 300 intravenous contrast. Iterative Reconstruction dose reducing technique was utilized. FINDINGS: Ill-defined hypoattenuations within the periventricular and subcortical deep white matter, a nonspecific finding, however most commonly related to chronic small vessel ischemic disease. The normal grissom-white matter junction is otherwise maintained. No intra-axial or extra-axial mass or hemorrhage seen. No mass effect or midline shift. No abnormal postcontrast enhancement. Symmetric prominence of the ventricles and cerebral sulci, most consistent with age-related generalized cerebral volume loss. The ventricles are otherwise normal in shape and configuration without evidence of hydrocephalus. The basilar cisterns are patent. No extracalvarial scalp swelling. No acute calvarial fracture. The visualized paranasal sinuses and mastoid air cells are well aerated. The visualized orbits and globes appear normal. IMPRESSION: 1. No acute intracranial process identified by CT. 2. Age-related generalized cerebral volume loss and chronic small vessel ischemic disease. .
== END ==
LOC: IMA 10:08
PROVIDERS: ATTEND Internal Medicine Cardiovascular Disease
DX: R55 Syncope and collapse (principal); I67.82 Cerebral ischemia
CPT/HCPCS: 70470; J7050; Q9967

== ENCOUNTER 2016-12-26 12:04 | Observation (INO) | payer MEDICARE, OTHER ==
[~2016-12-26] VITALS: Ht 177.8 cm; Wt 80.7 kg
[~2016-12-26 12:04] MED LIST changes: -IOHEXOL 300 MG/ML 50ml INJECTION ONE; -NORMAL SALINE 100 ML ONE; -SALINE FLUSH 10ml SYRINGE ONE
--- OUTSIDE RECORDS SUMMARY | 2016-12-26 12:08 | XMS REPORT | Continuity of Care Document ---
Author Author [facility] Organization [facility] Address Unknown Phone Unavailable Support Name Relationship Address Phone AUSTYN CHAMPION MD Caregiver [address] [place] [address] Unavailable WENDY WATERS MD Caregiver [address] [address] Unavailable GEOVANNA BADILLO Next Of Kin [address] [id number] Insurance Providers Guarantor Anabel Badillo Address [address] [place] [phone] Email DENIED 16 Payer [facility] Policy Number [id number] Subscriber's Name Anabel Badillo Relationship 18 Self Group Number [id number] Effective Date 97 Payer Medicare Policy Number [id number] Subscriber's Name Anabel Badillo Relationship 18 Self Advance Directives Directive Response Recorded Date/Time Advanced Directives Type None 11/12/16 9:53am Chief Complaint and Reason for Visit Chief Complaint Syncope Reason for Visit Syncopal episodes Problems Past Problems Medical Problem Onset Date Syncopal episodes Unknown Medications Current Home Medications Medication Dose Units Route Directions Days Qty Instructions Start Date Carbidopa/Levodopa (Carbidopa-Levodopa 25-250 Tab) 1 Each Tablet 1 Tab Oral Three Times Daily/Empty [place] 11/12/16 Cyanocobalamin (Vitamin B-12) (Vitamin B-12) 1,000 Mcg Tablet 1,000 Mcg Oral Daily 11/12/16 Dutasteride (Avodart) 0.5 Mg Capsule 0.5 Mg Oral Daily 06/06/12 Tamsulosin Hcl 0.4 Mg Cap.er.24h 0.4 Mg Oral Bedtime 11/12/16 Triamterene/Hydrochlorothiazid (Triamterene-Hctz 37.5-25 Mg Tb) 1 Each Tablet 1 Tab Oral Daily 11/12/16 Social History Query Response Start Date Stop Date Smoking Status Unknown if ever smoked Hospital Discharge Instructions No hospital discharge instructions. Plan of Care Discharge Date 11/12/16 11:25am Disposition 01 DISCHARGED HOME, SELF-CARE Condition at Discharge Stable Instructions/Education Provided Syncope (ED) Prescriptions See Medication Section Referrals AUSTYN CHAMPION MD Address: [address] [place] [address] [place], [place] [phone] Additional Instructions/Education Follow-up later this week for reevaluation Care Plan and Goals Physician Care Plan Problem: Syncope Goal: Follow up with primary care provider Instructions: Take medications and follow care plan as discussed/written Functional Status No functional status results. Allergies, Adverse Reactions, Alerts Allergen Type Severity Reaction Status Last Updated No Known Drug Allergies Adverse Reaction Unknown Active 11/12/16 Immunizations Query Response on File Recorded Date/Time Hx Tetanus, Diptheria, Pertussis N/A SKIN INTACT 06/06/12 12:00pm Hx Tetanus, Diptheria, Pertussis N/A SKIN INTACT 06/06/12 12:00pm Vital Signs Acute Vital Signs Vital Response Date/Time Temperature (Fahrenheit) 98.6 deg F (96.8 - 99.1) 11/12/2016 9:07am Temperature (Calculated Celsius) 37.96203 degrees C (36.0 - 37.3) 11/12/2016 9:07am Pulse Rate (adult) 55 bpm (60 - 100) 11/12/2016 11:15am Respiratory Rate 16 breaths/min (10 - 20) 11/12/2016 11:15am O2 Sat by Pulse Oximetry 96 % (90 - 100) 11/12/2016 11:15am Blood Pressure 111/59 mm Hg 11/12/2016 11:15am Height (Feet) 5 feet 11/12/2016 9:07am Height (Inches) 10.00 inches 11/12/2016 9:07am Weight (Kilograms) 83.800 kg 11/12/2016 9:07am Body Mass Index (BMI) 26.0 11/12/2016 9:07am Results Laboratory Results Test Name Result Units Flags Reference Collection Date/Time Result Date/ Time Comments White Blood Count 6.0 T/MM3 4.5-11.0 11/12/2016 9:18am 11/12/2016 9: 44am Red Blood Count 4.98 M/MM3 4.50-5.90 11/12/2016 9:18am 11/12/2016 9: 44am Hemoglobin 14.9 GM/DL 13.5-17.5 11/12/2016 9:18am 11/12/2016 9:44am Hematocrit 45.3 % 41-53 11/12/2016 9:18am 11/12/2016 9:44am Mean Corpuscular Volume 91.0 UM3 80-100 11/12/2016 9:18am 11/12/2016 9: 44am Mean Corpuscular Hemoglobin 29.9 UUG 26-34 11/12/2016 9:18am 2016 9:44am Mean Corpuscular Hemoglobin Concent 32.9 GM/DL 31-37 11/12/2016 9:18am 11/12/2016 9:44am RDW Standard Deviation 41.9 FL 36.9-50.2 11/12/2016 9:18am 11/12/2016 9 :44am Platelet Count 244 T/MM3 130-400 11/12/2016 9:18am 11/12/2016 9:44am Mean Platelet Volume 9.5 UM3 9.4-12.4 11/12/2016 9:18am 11/12/2016 9: 44am Neutrophils (%) (Auto) 64.3 % 33-66 11/12/2016 9:18am 11/12/2016 9: 44am Lymphocytes (%) (Auto) 27.0 % 23-45 11/12/2016 9:18am 11/12/2016 9: 44am Monocytes (%) (Auto) 6.0 % 0-9.0 11/12/2016 9:18am 11/12/2016 9:44am Eosinophils (%) (Auto) 1.7 % 0-4 11/12/2016 9:1811/12/2016 9:44am Basophils (%) (Auto) 0.7 % 0-2 11/12/2016 9:18am 11/12/2016 9:44am Immature Granulocyte % (Auto) 0.3 % 0.0-0.5 11/12/2016 9:18am 2016 9:44am Absolute Neutrophils (auto) 3.9 T/MM3 1.8-7.7 11/12/2016 9:18am 2016 9:44am Absolute Lymphocytes (auto) 1.6 T/MM3 1-4.8 11/12/2016 9:182016 9:44am Absolute Monocytes (auto) 0.4 T/MM3 0-0.8 11/12/2016 9:18am 11/12/2016 9:44am Absolute Eosinophils (auto) 0.1 T/MM3 0-0.5 11/12/2016 9:18am 2016 9:44am Absolute Basophils (auto) 0.0 T/MM3 0-0.2 11/12/2016 9:1811/12/2016 9:44am Absolute Immature Granulocyte (auto 0.02 T/MM3 0.00-0.03 11/12/2016 9: 18am 11/12/2016 9:44am Icterus Index < 2 0-7 11/12/2016 9:18am 11/12/2016 9:49am Chemistry Specimen Hemolysis < 15 0-25 11/12/2016 9:1811/12/2016 9 :49am 0-25: Specimen Exhibited No Hemolysis. Turbidity < 20 0-20 11/12/2016 9:1811/12/2016 9:49am Sodium Level 140 MEQ/L 134-144 11/12/2016 9:1811/12/2016 9:49am Potassium Level 3.7 MEQ/L 3.6-5 11/12/2016 9:1811/12/2016 9:49am Chloride Level 101 MEQ/L 98-107 11/12/2016 9:18am 11/12/2016 9:49am Carbon Dioxide Level 32 MEQ/L H 22-30 11/12/2016 9:1811/12/2016 9: 49am Anion Gap 7 MEQ/L 5-15 11/12/2016 9:1811/12/2016 9:49am Blood Urea Nitrogen 25.0 MG/DL H 9-20 11/12/2016 9:18am 11/12/2016 9: 49am Creatinine 1.4 MG/DL 0.8-1.5 11/12/2016 9:1811/12/2016 9:49am BUN/Creatinine Ratio 18 RATIO 6-26 11/12/2016 9:18am 11/12/2016 9:49am Glomerular Filtration Rate Calc 48 11/12/2016 9:1811/12/2016 9: 49am Glucose Level 147 MG/DL H 75-110 11/12/2016 9:18am 11/12/2016 9:49am Calculated Osmolality 276 MOSM/KG 261-280 11/12/2016 9:18am 11/12/2016 9:49am Calcium Level 9.0 MG/DL 8.4-10.2 11/12/2016 9:18am 11/12/2016 9:49am Troponin I < 0.012 ng/ml 0-0.12 11/12/2016 9:18am 11/12/2016 10:02am Troponin values with a difference of 55% increase from orginal troponin value represent a true biological DELTA value. (%increase Calc=Orginal Troponin value, divided by subsequent Troponin value, multiplied by 100) Urine Collection Type VOIDED-NOT CC-MIDSTR 11/12/2016 10:0911/12 10:18am Urine Color YELLOW YELLOW 11/12/2016 10:0911/12/2016 10:18am Urine Turbidity CLEAR CLEAR 11/12/2016 10:0911/12/2016 10:18am Urine Specific [place] 1.015 1.015-1.025 11/12/2016 10:092016 10:18am Urine pH 6.0 5.0-8.0 11/12/2016 10:0911/12/2016 10:18am Urine Leukocyte Esterase NEGATIVE NEGATIVE 11/12/2016 10:092016 10:18am Urine Nitrite NEGATIVE NEGATIVE 11/12/2016 10:0911/12/2016 10: 18am Urine Protein NEGATIVE NEGATIVE 11/12/2016 10:0911/12/2016 10: 18am Urine Glucose (UA) NEGATIVE NEGATIVE 11/12/2016 10:0911/12/2016 10 :18am Urine Ketones NEGATIVE NEGATIVE 11/12/2016 10:0911/12/2016 10: 18am Urine Urobilinogen 0.2 EU/DL NORMAL 11/12/2016 10:0911/12/2016 10: 18am Urine Bilirubin NEGATIVE NEGATIVE 11/12/2016 10:0911/12/2016 10: 18am Urine Blood NEGATIVE NEGATIVE 11/12/2016 10:0911/12/2016 10:18am Urinalysis Comment MICROSCOPIC NOT IND. 11/12/2016 10:09am 2016 10:18am Glucometer 125 mg/dL H 75-110 11/12/2016 9:11am 11/12/2016 9:20am Name: ANABEL BADILLO Unit #: [id number] : 1930 Sex: M Admit Date: Loc / Svc: ED Discharge Date: DIAGNOSTIC IMAGING REPORT Report #: [id number] [facility] Indication: ITS.REASON: syncopal episode PROCEDURE: CHEST 1 VIEW: Encounter: Initial Comparison: None Findings: The lungs are clear. Heart size normal. No focal opacity to suggest atelectasis or pneumonia. No mediastinal or hilar adenopathy. No pleural effusion. No subdiaphragmatic free air. The trachea is midline. No definite acute appearing displaced rib fracture or pneumothorax. Impression: No acute process. . Procedures Procedure Status Date Provider(s) Urinalysis auto w/o scope Completed 10/11/16 Encounters Encounter Location Arrival/Admit Date Discharge/Depart Date Attending Provider Departed Emergency Room [facility] 11/12/16 9:01am 11/12/16 11: 25am WENDY WATERS MD Registered Clinic [facility] 10/11/16 9:39am KERRY PASCUAL MD Recent Diagnosis
--- OUTSIDE RECORDS SUMMARY | 2016-12-26 12:08 | XMS REPORT | Continuity of Care Document ---
Author Author [facility] Organization [facility] Address Unknown Phone Unavailable Allergies Active Description Code Type Severity Reaction Onset Reported/Identified Relationship to Patient Clinical Status Yes No Known Medication Allergies NKMA N/A N/A 06/08/2014 Medications Problems Procedures Results Encounters ACCT No. Visit Date/Time Discharge Status Pt. Type Provider Facility Loc./Unit Complaint [id number] 12/08/2013 11:22:00 12/08/2013 23 :59:59 CLS Outpatient [id number] 12/01/2013 14:00:00 12/01/2013 23 :59:59 CLS Outpatient [id number] 11/25/2013 13:08:00 11/25/2013 23 :59:59 CLS Outpatient [id number] 10/29/2013 10:21:00 10/29/2013 23 :59:59 CLS Outpatient [id number] 10/22/2013 10:14:00 10/22/2013 23 :59:59 CLS Outpatient
--- NOTE | 2016-12-26 12:15 | NUR ---
ADMISSION PATIENT ADMITTED TO ROOM 120 AT THIS TIME. PATIENT AMBULATORY. DIRECT ADMIT FROM DR. BEE'S OFFICE. A/OX3. PATIENT APPEARS IN NO ACUTE DISTRESS/STABLE. WILL CONTINUE TO MONITOR.
[2016-12-26] MEDS ORDERED: AMIODARONE 150 MG in NORMAL SALINE 100 ML IV ONE (12:30)
[2016-12-26 12:33] VITALS: Ht 177.8 cm; Wt 80.7 kg
[2016-12-26 12:53] VITALS: BP 126/80; PULSE 64; RESP 16; TEMP 97.2; O2SAT 97
[2016-12-26] MEDS: AMIODARONE 900 MG in NORMAL SALINE 500 ML IV SCH ×2 (13:16→13:30)
[2016-12-26] MEDS: ENOXAPARIN 40 MG/0.4 ML INJECTION SQ SCH (13:16)
[2016-12-26 13:37] LABS: BASOPHILS % (AUTO) 0.5 % (0-2); EOSINOPHILS # (AUTO) 0.1 T/MM3 (0-0.5); HCT - HEMATOCRIT 44.1 % (41-53); HGB - HEMOGLOBIN 14.4 GM/DL (13.5-17.5); IMMATURE GRANULOCYTE # (AUTO) 0.01 T/MM3 (0.00-0.03); IMMATURE GRANULOCYTE % (AUTO) 0.2 % (0.0-0.5); LYMPHOCYTES # (AUTO) 1.6 T/MM3 (1-4.8); MEAN CORPUSCULAR HGB 29.8 UUG (26-34); MEAN CORPUSCULAR HGB CONC(MCHC 32.7 GM/DL (31-37); MEAN CORPUSCULAR VOLUME 91.1 UM3 (80-100); MEAN PLATELET VOLUME 9.6 UM3 (9.4-12.4); MONOCYTES # (AUTO) 0.4 T/MM3 (0-0.8); MONOCYTES % (AUTO) 7.2 % (0-9.0); NEUTROPHILS #(AUTO)-ABSOLUTE 3.8 T/MM3 (1.8-7.7); NEUTROPHILS % (AUTO) 64.1 % (33-66); RED BLOOD COUNT 4.84 M/MM3 (4.50-5.90); WBC - WHITE BLOOD COUNT 5.9 T/MM3 (4.5-11.0)
[2016-12-26 13:47] LABS: ALBUMIN 3.9 G/DL (3.5-5.0); ALBUMIN/GLOBULIN RATIO 1.4 RATIO (1.1-2.2); ALKALINE PHOSPHATASE 71 U/L (38-126); ALT (SGPT) 15 U/L (21-72); ANION GAP 10 MEQ/L (5-15); AST (SGOT) 18 U/L (17-59); BUN/CREATININE RATIO 16 RATIO (6-26); CALCIUM 9.3 MG/DL (8.4-10.2); CHLORIDE 100 MEQ/L (98-107); CO2 - CARBON DIOXIDE 32 MEQ/L (22-30); CREATININE 1.4 MG/DL (0.8-1.5); GLOMERULAR FILTRATION RATE 48; GLUCOSE 112 MG/DL (75-110); MAGNESIUM 2.1 MG/DL (1.6-2.3); POTASSIUM 3.8 MEQ/L (3.6-5); SODIUM 142 MEQ/L (134-144); TOTAL PROTEIN 6.7 G/DL (6.3-8.2)
--- NOTE | 2016-12-26 14:08 | DI ---
Indication: ITS.REASON: V Tach Procedure: CHEST 1 VIEW: Encounter: Initial Comparison: 11/12/2016 Technique: A single portable AP chest Was obtained. Findings: Lungs and airways: Normal lung volumes. No focal airspace consolidation. Normal pulmonary vasculature. Pleura: No pleural effusion or pneumothorax. Heart and mediastinum: The cardiomediastinal silhouette and great vessels are within normal limits. Osseous structures and soft tissues: No acute osseous abnormality is seen. Degenerative arthrosis of the AC joints. Impression: No acute cardiopulmonary process. .
[2016-12-26 16:19] VITALS: BP 118/62; PULSE 56; RESP 18; TEMP 97.7; O2SAT 95
[2016-12-26 19:46] VITALS: PULSE 54
[2016-12-27 00:30] VITALS: BP 111/71; PULSE 49; RESP 14; TEMP 97.3; O2SAT 95
[2016-12-27 04:00] VITALS: BP 118/65; PULSE 48; RESP 12; TEMP 97.6; O2SAT 96
--- NOTE | 2016-12-27 05:17 | NUR ---
SHIFT SUMMARY PATIENT IS ALERT AND ORIENTED X3 THIS SHIFT. VITAL SIGNS ARE STABLE ON ROOM AIR, BUT PATIENT HS BEEN BRADYCARDIC IN THE 40'S. PATIENT AMBULATES WELL WITH STAND BY. PATIENT HAS SLEPT EXCEPT DURING CARES AND HAS BEEN PLEASANT. WILL CONTINUE TO MONITOR.
[2016-12-27 09:38] LABS: ANION GAP 8 MEQ/L (5-15); BUN/CREATININE RATIO 17 RATIO (6-26); CALCIUM 9.1 MG/DL (8.4-10.2); CHLORIDE 101 MEQ/L (98-107); CO2 - CARBON DIOXIDE 33 MEQ/L (22-30); CREATININE 1.4 MG/DL (0.8-1.5); GLOMERULAR FILTRATION RATE 48; GLUCOSE 101 MG/DL (75-110); POTASSIUM 3.9 MEQ/L (3.6-5); SODIUM 142 MEQ/L (134-144)
[2016-12-27 09:50] VITALS: BP 126/58; PULSE 58; RESP 16; O2SAT 96
[2016-12-27] MEDS: ENOXAPARIN 40 MG/0.4 ML INJECTION SQ SCH (09:53)
--- NOTE | 2016-12-27 09:56 | NUR ---
CM CM IN TO VISIT PATIENT, HE IS UP IN CHAIR, A&O. IS PRESENT. PATIENT PLANS TO DISCHARGE HOME, DENIES ANY DISCHARGE NEEDS. CM CONTACT INFORMATION PROVIDED. LACE SCORE IS 2, NO FURTHER FOLLOW UP IS INDICATED. Addendum: 12/27/16 at 0958 by JODY WEBB RN Amended: Links added.
[2016-12-27 09:58] VITALS: PULSE 58; RESP 16
[2016-12-27 10:13] VITALS: PULSE 58; RESP 12
[2016-12-27] MEDS ORDERED: AMIO200T7 PO (11:37)
--- NOTE | 2016-12-27 11:58 | DSPDOC ---
ANTOINE SOTO RAIMANN MACHINE OPERATOR 12/27/16 1157: General Date Date DATE: 12/27/16 TIME: 11:39 Attending Physician Derrick Bee MD Admitting Physician Derrick Bee MD Consulting Physician Admitting Diagnosis V Tach Discharge Diagnosis SVT Laboratory Laboratory Tests Test 12/26/16 13:16 12/26/16 18:20 12/26/16 23:51 12/27/16 04:35 White Blood Count 5.9T/MM3 Red Blood Count 4.84M/MM3 Hemoglobin 14.4GM/DL Hematocrit 44.1% Mean Corpuscular Volume 91.1UM3 Mean Corpuscular Hemoglobin 29.8UUG Mean Corpuscular Hemoglobin Concent 32.7GM/DL RDW Standard Deviation 43.0FL Platelet Count 238T/MM3 Mean Platelet Volume 9.6UM3 Immature Granulocyte % (Auto) 0.2% Neutrophils (%) (Auto) 64.1% Lymphocytes (%) (Auto) 27.0% Monocytes (%) (Auto) 7.2% Eosinophils (%) (Auto) 1.0% Basophils (%) (Auto) 0.5% Absolute Immature Granulocyte (auto 0.01T/MM3 Absolute Neutrophils (auto) 3.8T/MM3 Absolute Lymphocytes (auto) 1.6T/MM3 Absolute Monocytes (auto) 0.4T/MM3 Absolute Eosinophils (auto) 0.1T/MM3 Absolute Basophils (auto) 0.0T/MM3 Turbidity < 20 < 20 Sodium Level 142MEQ/L 142MEQ/L Potassium Level 3.8MEQ/L 3.9MEQ/L Chloride Level 100MEQ/L 101MEQ/L Carbon Dioxide Level 32MEQ/L 33MEQ/L Anion Gap 10MEQ/L 8MEQ/L Blood Urea Nitrogen 22.0MG/DL 24.0MG/DL Creatinine 1.4MG/DL 1.4MG/DL Glomerular Filtration Rate Calc 48 48 BUN/Creatinine Ratio 16RATIO 17RATIO Glucose Level 112MG/DL 101MG/DL Calculated Osmolality 277MOSM/KG 277MOSM/KG Calcium Level 9.3MG/DL 9.1MG/DL Magnesium Level 2.1MG/DL Total Bilirubin 0.90MG/DL Icterus Index < 2 < 2 Aspartate Amino Transf (AST/SGOT) 18U/L Alanine Aminotransferase (ALT/SGPT) 15U/L Alkaline Phosphatase 71U/L Troponin I < 0.012ng/ml < 0.012ng/ml 0.013ng/ml Total Protein 6.7G/DL Albumin 3.9G/DL Globulin 2.8G/DL Albumin/Globulin Ratio 1.4RATIO Thyroid Stimulating Hormone (TSH) 0.30MIU/L Chemistry Specimen Hemolysis < 15 < 15 < 15 < 15 Test 12/27/16 04:36 Laboratory Tests Test 12/26/16 13:16 12/26/16 18:20 12/26/16 23:51 12/27/16 04:35 White Blood Count 5.9T/MM3 (4.5-11.0) Red Blood Count 4.84M/MM3 (4.50-5.90) Hemoglobin 14.4GM/DL (13.5-17.5) Hematocrit 44.1% (41-53) Mean Corpuscular Volume 91.1UM3 (80-100) Mean Corpuscular Hemoglobin 29.8UUG (26-34) Mean Corpuscular Hemoglobin Concent 32.7GM/DL (31-37) RDW Standard Deviation 43.0FL (36.9-50.2) Platelet Count 238T/MM3 (130-400) Mean Platelet Volume 9.6UM3 (9.4-12.4) Immature Granulocyte % (Auto) 0.2% (0.0-0.5) Neutrophils (%) (Auto) 64.1% (33-66) Lymphocytes (%) (Auto) 27.0% (23-45) Monocytes (%) (Auto) 7.2% (0-9.0) Eosinophils (%) (Auto) 1.0% (0-4) Basophils (%) (Auto) 0.5% (0-2) Absolute Immature Granulocyte (auto 0.01T/MM3 (0.00-0.03) Absolute Neutrophils (auto) 3.8T/MM3 (1.8-7.7) Absolute Lymphocytes (auto) 1.6T/MM3 (1-4.8) Absolute Monocytes (auto) 0.4T/MM3 (0-0.8) Absolute Eosinophils (auto) 0.1T/MM3 (0-0.5) Absolute Basophils (auto) 0.0T/MM3 (0-0.2) Turbidity < 20 (0-20) < 20 (0-20) Sodium Level 142MEQ/L (134-144) 142MEQ/L (134-144) Potassium Level 3.8MEQ/L (3.6-5) 3.9MEQ/L (3.6-5) Chloride Level 100MEQ/L (98-107) 101MEQ/L (98-107) Carbon Dioxide Level 32MEQ/L (22-30) 33MEQ/L (22-30) Anion Gap 10MEQ/L (5-15) 8MEQ/L (5-15) Blood Urea Nitrogen 22.0MG/DL (9-20) 24.0MG/DL (9-20) Creatinine 1.4MG/DL (0.8-1.5) 1.4MG/DL (0.8-1.5) Glomerular Filtration Rate Calc 48 48 BUN/Creatinine Ratio 16RATIO (6-26) 17RATIO (6-26) Glucose Level 112MG/DL (75-110) 101MG/DL (75-110) Calculated Osmolality 277MOSM/KG (261-280) 277MOSM/KG (261-280) Calcium Level 9.3MG/DL (8.4-10.2) 9.1MG/DL (8.4-10.2) Magnesium Level 2.1MG/DL (1.6-2.3) Total Bilirubin 0.90MG/DL (0.20-1.30) Icterus Index < 2 (0-7) < 2 (0-7) Aspartate Amino Transf (AST/SGOT) 18U/L (17-59) Alanine Aminotransferase (ALT/SGPT) 15U/L (21-72) Alkaline Phosphatase 71U/L (38-126) Troponin I < 0.012ng/ml (0-0.12) < 0.012ng/ml (0-0.12) 0.013ng/ml (0-0.12) Total Protein 6.7G/DL (6.3-8.2) Albumin 3.9G/DL (3.5-5.0) Globulin 2.8G/DL (2.4-3.6) Albumin/Globulin Ratio 1.4RATIO (1.1-2.2) Thyroid Stimulating Hormone (TSH) 0.30MIU/L (0.47-4.68) Chemistry Specimen Hemolysis < 15 (0-25) < 15 (0-25) < 15 (0-25) < 15 (0-25) Test 12/27/16 04:36 Radiology DATE OF EXAM: 12/26/16 ORDERING DOCTOR: ANTOINE SOTO APRN TYPE OF EXAM: CHEST 1 VIEW REASON FOR EXAM: V Tach Indication: ITS.REASON: V Tach Procedure: CHEST 1 VIEW: Encounter: Initial Comparison: 11/12/2016 Technique: A single portable AP chest Was obtained. Findings: Lungs and airways: Normal lung volumes. No focal airspace consolidation. Normal pulmonary vasculature. Pleura: No pleural effusion or pneumothorax. Heart and mediastinum: The cardiomediastinal silhouette and great vessels are within normal limits. Osseous structures and soft tissues: No acute osseous abnormality is seen. Degenerative arthrosis of the AC joints. Impression: No acute cardiopulmonary process. History of Present Illness Derek Badillo is a 86 year old male who is well known to Dr. Bee who was seen yesterday in the office for evaluation of syncope and recent Holter showed SVT. He was admitted to [facility] [place] an observation for the arrhythmia and started on IV Amiodarone. Objective Vital Signs Vital signs Vital Signs 12/27/16 12/27/16 12/27/16 12/27/16 00:30 04:00 09:50 09:58 Temp 97.3 97.6 Pulse 49 48 58 58 Resp 14 12 16 16 B/P 111/71 118/65 126/58 Pulse Ox 95 96 96 O2 Delivery Room Air Room Air Room Air 12/27/16 10:13 Pulse 58 Resp 12 Telemetry Rhythm: Sinus Rhythm, Bundle Branch Block (right) Height (Feet): 5 Height (Inches): 10.00 Weight (Kilograms): 80.700 General Alert, Orientated x 3, Cooperative ENMT (Brief) mucosa moist Neck (Brief) NOT FOUND: JVD, carotid bruits Respiratory (Brief) clear all chow, equal bilaterally, NOT FOUND: rales, wheezes Cardiovascular (Brief) regular rate, regular rhythm, NOT FOUND: click, gallop, murmur, pedal edema, rub Abdomen (Brief) BS normo active x4, soft, NOT FOUND: tender Musculoskeletal (Brief) other (tremor- Parkinsons) Integumentary (Brief) dry, pink, warm Neurologic (Brief) FOUND: other (tremor- Parkinsons) Psychiatric (Brief) alert, oriented Laboratory Laboratory Laboratory Tests 12/26/16 13:16 12/27/16 04:35 Laboratory Tests 12/26/16 13:16 Medications Current Medications Enoxaparin Sodium 40 mg 40 mg DAILY SQ Last administered on 12/27/16 09:53; Start 12/26/16 at 12:30 Amiodarone HCl 150 mg/Sodium Chloride 103 ml @ 600 mls/hr NOW ONCE IV Last administered on 12/26/16 13:16; Start 12/26/16 at 12:30; Stop 12/26/16 at 12:43 ; Status DC Amiodarone HCl/ Sodium Chloride (Cordarone/NS) 518 ml @ 33.33 mls/ hr [id number] IV Last administered on 12/26/16 13:30; Start 12/26/16 at 12:30 Amiodarone HCl (Pacerone) 200 mg DAILY PO ; Start 12/28/16 at 09:00 Carbidopa/Levodopa (SINEMET 25/250 Tablet) 1 tab TID/E PO ; Start 12/27/16 at 14 :00 Cyanocobalamin (Vit. B-12) 1,000 mcg DAILY PO ; Start 12/28/16 at 09:00 Dutasteride (Avodart) 0.5 mg DAILY PO ; Start 12/28/16 at 09:00 Triamterene/HCTZ (Maxzide-25) 1 tab DAILY PO ; Start 12/28/16 at 09:00 Radiology DATE OF EXAM: 12/26/16 ORDERING DOCTOR: ANTOINE SOTO APRN TYPE OF EXAM: CHEST 1 VIEW REASON FOR EXAM: V Tach Indication: ITS.REASON: V Tach Procedure: CHEST 1 VIEW: Encounter: Initial Comparison: 11/12/2016 Technique: A single portable AP chest Was obtained. Findings: Lungs and airways: Normal lung volumes. No focal airspace consolidation. Normal pulmonary vasculature. Pleura: No pleural effusion or pneumothorax. Heart and mediastinum: The cardiomediastinal silhouette and great vessels are within normal limits. Osseous structures and soft tissues: No acute osseous abnormality is seen. Degenerative arthrosis of the AC joints. Impression: No acute cardiopulmonary process. Hospital Course He was admitted to [facility] [place] as an observation for the arrhythmia and started on IV Amiodarone. Today he is changed to oral Amiodarone and discharged for outpatient stress test Problems: Code Status Full Code Home Meds Active Scripts Amiodarone HCl (Pacerone) 200 Mg Tablet, 200 MG PO DAILY for 30 Days, #30 TAB 11 Refills Prov:CHARLESANTOINE APRN 12/27/16 Reported Medications Cyanocobalamin (Vitamin B-12) (Vitamin B-12) 1,000 Mcg Tablet, 1000 MCG PO DAILY 11/12/16 Carbidopa/Levodopa (Carbidopa-Levodopa 25-250 Tab) 1 Each Tablet, 1 TAB PO TID/E 11/12/16 Triamterene/Hydrochlorothiazid (Triamterene-Hctz 37.5-25 mg Tb) 1 Each Tablet, 1 TAB PO DAILY 11/12/16 Dutasteride (Avodart) 0.5 Mg Capsule, 0.5 MG PO DAILY 06/06/12 Discharge Disposition Discharged to home in good and stable condition in the care of himself with RX transmitted for Amiodarone 200mg daily DERRICK BEE MD 12/31/16 1634: Hospital Course Home Meds Active Scripts Amiodarone HCl (Pacerone) 200 Mg Tablet, 200 MG PO DAILY for 30 Days, #30 TAB 11 Refills Prov:ANTOINE SOTO APRN 12/27/16 Reported Medications Cyanocobalamin (Vitamin B-12) (Vitamin B-12) 1,000 Mcg Tablet, 1000 MCG PO DAILY 11/12/16 Carbidopa/Levodopa (Carbidopa-Levodopa 25-250 Tab) 1 Each Tablet, 1 TAB PO TID/E 11/12/16 Triamterene/Hydrochlorothiazid (Triamterene-Hctz 37.5-25 mg Tb) 1 Each Tablet, 1 TAB PO DAILY 11/12/16 Dutasteride (Avodart) 0.5 Mg Capsule, 0.5 MG PO DAILY 06/06/12 Discharge Disposition After examining the patient I agree with the above assessment. I am involved in the formulation of the patient's plan of care. ANTOINE SOTO RAIMANN MACHINE OPERATOR Dec 27, 2016 11:57 DERRICK BEE MD Dec 31, 2016 16:34
[2016-12-27] MEDS ORDERED: AMIODARONE 200 MG TABLET PO ONE (12:15)
--- NOTE | 2016-12-27 12:17 | NUR ---
DISCHARGE NURSING NOTE PT WAS DISCHARGED FROM THE HOSPITAL AT THIS TIME, AMBULATORY, ACCOMPANIED BY HIS . PT ALERT AND ORIENTED X3. VITAL SIGNS STABLE, ON RA. THIS RN WENT OVER DISCHARGE PAPERWORK WITH THE PT INCLUDING DISCHARGE DIET, ACTIVITY, MEDICATIONS AND FOLLOW-UP APPOINTMENTS. THE PT VERBALIZED UNDERSTANDING. THIS RN CLARIFIED WITH ANTOINE SOTO APRN REGARDING PT'S FIRST DOSE OF AMIODARONE. RECEIVED VERBAL ORDER TO GIVE PT THE FIRST DOSE PRIOR TO DISCHARGE. THE PT'S IV SITE WAS DISCONTINUED AND THE PT'S ID BAND WAS REMOVED. NO CONCERNS NOTED AT TIME OF DISCHARGE.
[2016-12-27] MEDS ORDERED: CARBIDOPA/LEVODOPA 25 MG/250 MG TABLET PO SCH (14:00)
[2016-12-28 00:51] LABS: LDL CHOLESTEROL,CALCULATED 70.2 (66-159); RISK FACTOR 2.5 RATIO (0-5.0); VLDL CHOLESTEROL 20.8 MG/DL (0-28)
[2016-12-28] MEDS ORDERED: AMIODARONE 200 MG TABLET PO SCH (09:00)
[2016-12-28] MEDS ORDERED: TRIAMTERENE/HCTZ 37.5mg/25mg TABLET PO SCH (09:00)
[2016-12-28] MEDS ORDERED: DUTASTERIDE 0.5 MG CAPSULE PO SCH (09:00)
[2016-12-28] MEDS ORDERED: CYANOCOBALAMIN (B-12) 500mcg TABLET PO SCH (09:00)
== END 2016-12-27 12:17 | disposition home or self-care (01) ==
LOC: MED 12:04 → SRG 12:22
PROVIDERS: ADMIT Internal Medicine Cardiovascular Disease; ATTEND Internal Medicine Cardiovascular Disease
DX: I47.1 Supraventricular tachycardia (principal); Z79.899 Other long term (current) drug therapy
CPT/HCPCS: 36415; 71010; 80048; 80053; 80061; 83735; 84443; 84484; 85025; 93005; 96365; 96366; 96372; 96375; A9270; G0378; G0379; J0282; J1650; J7050; 99218